=== PATIENT | male | born 1945 | race Caucasian/White ===

== ENCOUNTER 2022-05-21 12:46 | Inpatient (IN) | payer MEDICARE, OTHER ==
[~2022-05-21] VITALS: Ht 177.8 cm; Wt 107.0 kg
[2022-05-21 14:57] LABS: HEMOGLOBIN 13.6 gm/dl (14.0-17.5); RED BLOOD COUNT 4.79 M/UL (4.20-5.50); WHITE BLOOD COUNT 7.8 K/UL (4.5-11.0)
[2022-05-21] MEDS ORDERED: DIAZEPAM5 MG PO ×2 (18:04)
[2022-05-21] MEDS ORDERED: HYDROCODON-ACE1 EAC2 PO (18:06)
[2022-05-21] MEDS ORDERED: LEVEMIR FL100 UNIT/1 SQ (18:14)
[2022-05-21] MEDS ORDERED: LEVOTHYROXINE50 MCG PO (18:15)
[2022-05-21] MEDS ORDERED: AMLODIPINE BESY10 MG PO (18:16)
[2022-05-21] MEDS ORDERED: NITROGLYCERIN0.4 MG SL (18:16)
[2022-05-21] MEDS ORDERED: CLOPIDOGREL75 MG PO (18:17)
[2022-05-21] MEDS ORDERED: FENOFIBRATE160 MG PO (18:17)
[2022-05-21] MEDS ORDERED: GLIPIZIDE10 MG PO (18:18)
[2022-05-21] MEDS ORDERED: HYDRALAZINE HCL10 MG PO (18:18)
[2022-05-21] MEDS ORDERED: HYDROCHLOROTH12.5 M1 PO (18:19)
[2022-05-21] MEDS ORDERED: PRAVASTATIN SOD10 MG PO (18:20)
[2022-05-21] MEDS ORDERED: LISINOPRIL5 MG PO (18:20)
[2022-05-21] MEDS ORDERED: JANUMET 50-1,01 EACH PO (18:21)
[2022-05-21] MEDS ORDERED: IPRAT-ALBUT 0.5-3 ML INH (18:22)
[2022-05-21] MEDS ORDERED: CARVEDILOL25 MG PO (18:22)
[2022-05-21] MEDS ORDERED: ZINC50 M1 PO (18:23)
[2022-05-21] MEDS ORDERED: VITAMIN C500 M4 PO (18:23)
[2022-05-21] MEDS ORDERED: CYANOCOBAL1000 MCG/1 INJ (18:24)
[2022-05-22 08:26] LABS: HEMOGLOBIN 13.5 gm/dl (14.0-17.5); RED BLOOD COUNT 4.84 M/UL (4.20-5.50); WHITE BLOOD COUNT 7.5 K/UL (4.5-11.0)
[2022-05-23 02:34] LABS: HEMOGLOBIN 12.5 gm/dl (14.0-17.5); RED BLOOD COUNT 4.42 M/UL (4.20-5.50); WHITE BLOOD COUNT 7.8 K/UL (4.5-11.0)
[2022-05-23 10:14] LABS: CREATININE, URINE 59.7 mg/dL (Not Estab.)
[2022-05-24 01:26] LABS: HEMOGLOBIN 12.2 gm/dl (14.0-17.5); RED BLOOD COUNT 4.35 M/UL (4.20-5.50)
[2022-05-24 01:33] LABS: WHITE BLOOD COUNT 5.8 K/UL (4.5-11.0)
[2022-05-24] MEDS ORDERED: CARVEDILOL3.125 MG PO (08:10)
[2022-05-24] MEDS ORDERED: ASPIRIN EC81 MG PO (08:10)
[2022-05-24] MEDS ORDERED: CATAPRES 0.1MG0.1 MG PO (08:16)
[2022-05-24] MEDS ORDERED: CARVEDILOL25 MG PO (08:16)
[2022-05-24] MEDS ORDERED: HYDRALAZINE HCL25 MG PO (08:16)
[2022-05-24 09:14] LABS: HBSAG SCREEN Negative (Negative); HCV AB 0.1 (0.0-0.9); HEP A AB, IGM Negative (Negative); HEP B CORE AB, IGM Negative (Negative)
[2022-05-24 11:14] LABS: COMPLEMENT C3, SERUM 119 mg/dL (82-167); COMPLEMENT C4, SERUM 25 mg/dL (12-38)
[2022-05-24 14:15] LABS: A/G RATIO 1.6 (0.7-1.7); ALBUMIN 3.5 g/dL (2.9-4.4); ALPHA-1-GLOBULIN 0.2 g/dL (0.0-0.4); ALPHA-2-GLOBULIN 0.6 g/dL (0.4-1.0); ANTI-DSDNA ANTIBODIES <1 IU/mL (0-9); BETA GLOBULIN 0.7 g/dL (0.7-1.3); GAMMA GLOBULIN 0.7 g/dL (0.4-1.8); GLOBULIN, TOTAL 2.3 g/dL (2.2-3.9); IMMUNOGLOBULIN A, QN, SERUM 168 mg/dL (61-437); IMMUNOGLOBULIN G, QN, SERUM 742 mg/dL (603-1613); IMMUNOGLOBULIN M, QN, SERUM 50 mg/dL (15-143); M-SPIKE Not Observed g/dL (Not Observed); PROTEIN, TOTAL, SERUM 5.8 g/dL (6.0-8.5)
[2022-05-25 14:14] LABS: ANTIMYELOPEROXIDASE (MPO) ABS <0.2 units (0.0-0.9); ANTIPROTEINASE 3 (PR-3) ABS <0.2 units (0.0-0.9); ATYPICAL PANCA <1:20 titer (Neg:<1:20); CYTOPLASMIC (C-ANCA) <1:20 titer (Neg:<1:20); PERINUCLEAR (P-ANCA) <1:20 titer (Neg:<1:20)
== END 2022-05-24 10:43 | disposition home or self-care (01) | DRG 281 ==
LOC: ER1 12:46 → PROG CARE 15:26 → CDU 15:26 → PROG CARE 23:59
PROVIDERS: Internal Medicine; Internal Medicine Nephrology; Preventive Medicine Occupational Medicine; ADMIT Internal Medicine
PROC: B24BZZZ Ultrasonography of Heart with Aorta (ICD-10-PCS; principal; 2022-05-22)
DX: I47.1 Supraventricular tachycardia (principal); I21.4 Non-ST elevation (NSTEMI) myocardial infarction; Z20.822 Contact with and (suspected) exposure to COVID-19; I13.0 Hypertensive heart and chronic kidney disease with heart failure and stage 1 through stage 4 chronic kidney disease, or unspecified chronic kidney disease; I21.A1 Myocardial infarction type 2; I31.3 Pericardial effusion (noninflammatory); N17.9 Acute kidney failure, unspecified; N18.4 Chronic kidney disease, stage 4 (severe); I50.9 Heart failure, unspecified; E78.5 Hyperlipidemia, unspecified; E03.9 Hypothyroidism, unspecified; E11.22 Type 2 diabetes mellitus with diabetic chronic kidney disease; I08.1 Rheumatic disorders of both mitral and tricuspid valves; I44.7 Left bundle-branch block, unspecified; I25.10 Atherosclerotic heart disease of native coronary artery without angina pectoris; Z95.5 Presence of coronary angioplasty implant and graft; Z82.49 Family history of ischemic heart disease and other diseases of the circulatory system; Z79.4 Long term (current) use of insulin; Z98.890 Other specified postprocedural states; I25.2 Old myocardial infarction; Z79.82 Long term (current) use of aspirin; Z79.01 Long term (current) use of anticoagulants
CPT/HCPCS: ECHO; 36415; 71045; 80048; 80053; 80061; 80074; 81001; 82043; 82436; 82550; 82553; 82570; 82784; 82962; 83036; 83520; 83540; 83550; 83690; 83735; 83880; 84133; 84155; 84156; 84165; 84300; 84439; 84443; 84484; 85025; 85027; 85610; 85652; 85730; 86038; 86140; 86160; 86225; 86256; 86334; 93005; 93306; 94640; 94664; 94760; 96374; 96375; 96376; 99285; J1644

== ENCOUNTER → 2022-06-26 | Outpatient (CLI) | payer MEDICARE ==
[~2022-06-26] MED LIST: AMLODIPINE BESY10 MG PO; ASPIRIN EC81 MG PO; CARVEDILOL25 MG PO; CARVEDILOL3.125 MG PO; CATAPRES 0.1MG0.1 MG PO; CLOPIDOGREL75 MG PO; CYANOCOBAL1000 MCG/1 INJ; DIAZEPAM5 MG PO; FENOFIBRATE160 MG PO; GLIPIZIDE10 MG PO; HYDRALAZINE HCL10 MG PO; HYDRALAZINE HCL25 MG PO; HYDROCHLOROTH12.5 M1 PO; HYDROCODON-ACE1 EAC2 PO; IPRAT-ALBUT 0.5-3 ML INH; JANUMET 50-1,01 EACH PO; LEVEMIR FL100 UNIT/1 SQ; LEVOTHYROXINE50 MCG PO; LISINOPRIL5 MG PO; NITROGLYCERIN0.4 MG SL; PRAVASTATIN SOD10 MG PO; VITAMIN C500 M4 PO; ZINC50 M1 PO
[2022-06-27 12:14] LABS: CREATININE, URINE 190.8 mg/dL (Not Estab.)
== END ==
LOC: LAB 08:55
PROVIDERS: Internal Medicine Nephrology
DX: N18.32 Chronic kidney disease, stage 3b (principal)
CPT/HCPCS: 36415; 80053; 82043; 82570; 84156

== ENCOUNTER → 2022-06-26 | Outpatient (CLI) | payer MEDICARE | LOC: KOH-I 06-25 10:00 | DX: R04.2 Hemoptysis (principal); R91.1 Solitary pulmonary nodule | CPT/HCPCS: 71250 ==

== ENCOUNTER → 2022-07-18 | Outpatient (CLI) | payer MEDICARE | LOC: LAB 16:00 | PROVIDERS: Internal Medicine Nephrology | DX: N17.9 Acute kidney failure, unspecified (principal) | CPT/HCPCS: 36415; 80048 ==